=== PATIENT | male | born 1950 ===

== ENCOUNTER 2017-01-04 12:00 | Day surgery (SDC) | payer MEDICARE ==
[2016-12-31 12:21] VITALS: BMI 27.4
[2017-01-04] MEDS ORDERED: cefTRIAXone IV 1 gm in Dextros 50 ML IVPB ONE (15:32)
[2017-01-04] MEDS ORDERED: Lidocaine 2% Jelly (Uro-Jet) ONE (15:33)
[2017-01-04] MEDS ORDERED: Iohexol 240 (50 ml) ONE (15:33)
[2017-01-04] MEDS ORDERED: Lactated Ringer's 1,000 ML IV ONE (15:37)
[2017-01-04] MEDS ORDERED: Propofol 10 mg/ml Inj (20 ML) ONE (15:38)
[2017-01-04] MEDS ORDERED: Iohexol 240 200 ML IJ ONE (15:45)
[2017-01-04] MEDS ORDERED: HYDROmorphone 0.5 mg/0.5 ml ISec IVP PRN (16:15)
[2017-01-04] MEDS ORDERED: Oxycodone/Acetaminophen 5/325 mg Tab PO PRN (16:22)
[2017-01-04 17:00] VITALS: O2SAT 97
[2017-01-04 17:09] VITALS: RESP 18
[2017-01-04 17:35] VITALS: BP 146/79; PULSE 62; TEMP 97.8
--- NOTE | 2017-01-05 03:01 | HP ---
REASON FOR ADMISSION: Gross hematuria. HISTORY OF PRESENT ILLNESS: The patient is a very pleasant 66-year-old gentleman. We previously did a UroLift to the patient. He was voiding much better with a good flow. Then, it seems like he developed an episode of gross hematuria with possible retention. He was seen at another institution where I do not work. It is not so clear. He may have had a Stern catheter inserted at that time. He then came to the office. We discussed options. We actually did a cystoscope. He is here today for a cystoscopy, further evaluation. The possibility for a stricture exists, see below and the other possibility for a tumor ruling out any lesions. In the interim, the patient reports that since the time of the initial procedure, he initially had some difficulty, but then he was voiding so much better, he was very happy, the flow got better, and he was in good spirits. In fact to the point that he even brought his brother in to see me, his own brother, Viral Hassan, but then, he developed just a sudden episode of acute urinary retention with gross hematuria and he is here now for further diagnostic studies and evaluation. PAST MEDICAL HISTORY: No changes. PAST SURGICAL HISTORY: No changes. SOCIAL HISTORY: Unremarkable. PHYSICAL EXAMINATION: GENERAL: In no apparent distress. VITAL SIGNS: In the chart. ABDOMEN: Overall soft, nontender. : Normal male phallus without discharge. No testicular masses. RECTAL: *------* a 30 g prostate. LABORATORY DATA: Also see the labs that are included in the chart. PSA noted. BUN and creatinine noted. DIAGNOSES: Urinary retention, voiding dysfunction, gross hematuria. From urology standpoint, the diagnoses are gross hematuria, voiding dysfunction, decreased flow stream. PLAN: As follows. We are going to plan for a cystoscopy, a possible IOU and a cystogram and then further plan for followup depending on what we find clinically. The patient will receive antibiotic prophylaxis and we will proceed ahead and risks and benefits were discussed with the patient in my office and here in [place] both times. Diego Acuna MD [facility] # [id number]
--- NOTE | 2017-01-05 11:31 | OP ---
PREOPERATIVE DIAGNOSES: Gross hematuria, voiding dysfunction, possible bladder neck contracture and elevation of PSA. POSTOPERATIVE DIAGNOSES: Gross hematuria, voiding dysfunction, possible bladder neck contracture and elevation of PSA. PROCEDURE: Cystoscopy and cystogram. SURGEON: Diego Acuna MD BLOOD LOSS: Less than 10 mL. COMPLICATIONS: There were no complications. FINDINGS: The anterior urethra was normal. There is no pinpoint stricture. There is some narrowing just distal to the veru. The verumontanum is visually relatively occlusive. It is not an open like TURP, but you can see there are some defects, but it is mostly occlusive. Of significant note also is on the food equipment service technician film finding what looks like metal pieces, I believe the patient has no history of radiation, it almost looked like gigantic large radiation seeds and there are only about 8 to 10 of them. It could be the clips that were put in during the lift. But either way, I do not find them in the urinary bladder despite the x-rays, despite obliquing and despite careful search and I am aware of it, I could not see any direct clips. I did try to irrigate out the bladder and see if I can make them less in number. I have to check the count on the final film to see if they looked like it is less in number. But the other finding is there is no bladder neck contracture directly. In fact, that looks reasonably open. There was no bladder tumor identified. Ureteral orifices have clear efflux. INDICATIONS: See history and physical. This is a very pleasant gentleman. PROCEDURE: See the addendum at the end for further plan. The patient was brought to the operating room, placed on a table, routine monitors were placed. Time out was called to confirm the patient's positioning, etc. Time out was called and we put the patient in lithotomy and the patient had already received antibiotic prophylaxis. Cystoscope via the urethra, entry was normal and no real stricture. Just distal to veru, I took a picture, there is like a little narrowing, but it is not pinpoint and the scope goes right through, used a #22-scope. Told him again it is not widely open, but it is not the same occlusive nature of prostate. There are also different areas as you march along going proximal. At the bladder neck, it is fairly open. metal radiodense items that are across the floor of the bladder. Later oblique examination seemed to be again like here in the bladder and not in the rectum behind. See the plans listed below, but on the basis of CT scan. I did a cystogram to confirm the patient positioning. I do not see any source for direct gross hematuria, the prostate looked somewhat erythematous, and there is a moderate amount within the urinary bladder. The patient tolerated this procedure well without complications. On rectal exam, a 30 g prostate, soft and smooth. My plan and recommendations for the patient will be CT scan of the abdomen and pelvis just if we could find further where that metal is. I suspect it is within the prostate and not within the bladder. It was difficult on the first food equipment service technician film, it looked like it was more of bladder, but after doing the other films, moving the patient around, it is possible that is in the prostate. We will do a CT scan. Either way, I am not planning to remove anything. In terms of the patient's voiding habit, if he is okay, we are going to leave him. If he is not okay, we are going to plan for further treatment, but at this point, I would recommend and agree with laser TURP, but we will see how he responds. Diego Acuna MD
--- NOTE | 2017-01-05 12:53 | RAD ---
HISTORY: HEMATURIA/URINARY RETENTION COMPARISON: GoNo prior. FINDINGS: BOWEL: Single AP radiograph of the abdomen labeled "Machine Tender " is submitted. Normal abdominal bowel gas pattern. No hepatic or splenic enlargement. No masses or abnormal intra-abdominal calcifications. Radiation seed implants are seen in the prostate bed. BONES: Normal. OTHER FINDINGS: None. IMPRESSION: Unremarkable examination.
--- NOTE | 2017-01-05 12:55 | RAD ---
PROCEDURE: Intraoperative fluoroscopy HISTORY: HEMATURIA/RETENTION COMPARISON: Not available TECHNIQUE: Intraoperative fluoroscopy was provided for a cystogram. Total time of fluoroscopy was 4.2 seconds. FINDINGS: 3 fluoroscopic spot films are submitted. The films are on file for review. Please see procedure report from Dr. King Acuna. IMPRESSION: Fluoroscopy provided.
== END 2017-01-04 17:30 | disposition home or self-care (01) ==
LOC: C.SDS 12:00
PROVIDERS: ATTEND Urology
DX: R31.0 Gross hematuria (principal); R33.9 Retention of urine, unspecified
CPT/HCPCS: 52000; 74000; 76000; J0696; J7120

== ENCOUNTER 2017-02-21 09:10 | Inpatient (IN) | payer MEDICARE ==
[2017-02-21 09:10] VITALS: BMI 27.4
[2017-02-21 09:52] LABS: RBC URINE 6 /hpf (0-3); URINE BACTERIA RARE (<OCC); URINE BILIRUBIN NEGATIVE (NEGATIVE); URINE BLOOD NEGATIVE (NEGATIVE); URINE COLOR Straw (YELLOW); URINE GLUCOSE (UA) NORMAL (Normal); URINE KETONE NEGATIVE (NEGATIVE); URINE LEUKOCYTE ESTERASE NEG Leu/uL (Negative); URINE PROTEIN NEGATIVE (NEGATIVE); URINE UROBILINOGEN NORMAL mg/dL (0.2-1.0); WBC URINE 4 /hpf (0-5)
--- NOTE | 2017-02-21 10:01 | C.PDOC ---
History Of Present Illness 66 y/o male, with PMHx of BPH, presents to Emergency Department for evaluation of urinary retention since early this morning. Notes that he last urinated 4 hours ago, but states "just a little". Of note, patient had cystoscopy by Dr. Agustín Acuna last month. Otherwise, denies any fever, hematuria, back pain, abdominal pain, or any other associated symptoms at this time. Time Seen by Provider: 02/21/17 09:23 Chief Complaint (Nursing): Male Genitourinary History Per: Patient History/Exam Limitations: no limitations Onset/Duration Of Symptoms: Days Current Symptoms Are (Timing): Still Present Quality Of Discomfort: "Pain" Associated Symptoms: Urinary Symptoms (urinary retention). denies: Fever, Chills, Nausea, Vomiting, Diarrhea, Loss Of Appetite, Back Pain, Chest Pain, Constipation Alleviating Factors: None Recent travel outside of the [place]: No Additional History Per: Patient Past Medical History Reviewed: Historical Data, Nursing Documentation, Vital Signs Vital Signs: Last Vital Signs Temp 98.1 F 02/21/17 09:29 Pulse 94 H 02/21/17 09:29 Resp 18 02/21/17 09:29 BP 132/88 02/21/17 09:29 Pulse Ox 98 02/21/17 10:35 - Medical History PMH: Benign Prostatic Hyperplasia Denies: Chronic Kidney Disease Family History: States: Unknown Family Hx - Social History Hx Alcohol Use: No Hx Substance Use: No Review Of Systems Except As Marked, All Systems Reviewed And Found Negative. Constitutional: Negative for: Fever, Chills Gastrointestinal: Negative for: Nausea, Vomiting, Abdominal Pain Genitourinary: Positive for: Other (urinary retention). Negative for: Dysuria, Frequency, Hematuria, Penile Discharge Musculoskeletal: Negative for: Back Pain Physical Exam - Physical Exam Appears: Non-toxic, Other (uncomfortable) Skin: Normal Color, Warm, Dry, No Rash Head: Atraumatic, Normacephalic Eye(s): bilateral: Normal Inspection, EOMI Nose: Normal Oral Mucosa: Moist Neck: Normal ROM, Supple Chest: Symmetrical Cardiovascular: Rhythm Regular, No Murmur Respiratory: Normal Breath Sounds, No Rales, No Rhonchi, No Wheezing Gastrointestinal/Abdominal: Soft, Tenderness (suprapubic), No Guarding, No Rebound Back: No CVA Tenderness Extremity: Normal ROM Neurological/Psych: Oriented x3, Normal Speech ED Course And Treatment - Laboratory Results Result Diagrams: 02/21/17 10:28 02/21/17 10:28 O2 Sat by Pulse Oximetry: 98 (on RA) Pulse Ox Interpretation: Normal Progress Note: Blood work, UA ordered and reviewed. Pt was given IV fluids. Stern catheter was inserted. On reassessment, patient reports feeling much better. Case discussed with Dr. Agustín Acuna who requested admission for further evaluation. Disposition - Disposition Disposition Time: 10:00 Condition: STABLE - Clinical Impression Clinical Impression: Urinary retention due to benign prostatic hyperplasia - PA / HOT OILER / Resident Statement MD/DO has reviewed & agrees with the documentation as recorded. - Scribe Statement The provider has reviewed the documentation as recorded by the Scribe Alma Mak All medical record entries made by the Scribe were at my direction and personally dictated by me. I have reviewed the chart and agree that the record accurately reflects my personal performance of the history, physical exam, medical decision making, and the department course for this patient. I have also personally directed, reviewed, and agree with the discharge instructions and disposition.
[2017-02-21] MEDS ORDERED: Sodium Chloride 0.9% 1,000 ML ONE (10:11)
[2017-02-21] MEDS: Sodium Chloride 0.9% 1,000 ML IV SCH (10:30)
[2017-02-21 10:34] LABS: BASO % 0.2 % (0.0-2.0); EOS % 0.1 % (0.0-4.0); HEMATOCRIT 44.3 % (35.0-51.0); LYMPH # 0.6 K/uL (1.0-4.3); LYMPH % 8.2 % (20.0-40.0); MEAN CELL VOLUME 85.6 fL (80.0-94.0); MEAN CORPUSCULAR HEMOGLOBIN 28.5 pg (27.0-31.0); MEAN CORPUSCULAR HGB CONC 33.3 g/dL (33.0-37.0); MONO # 0.5 K/uL (0.0-0.8); NRBC % 0.1 % (0.0-2.0); PLATELET COUNT 162 K/uL (130-400); RED CELL DISTRIBUTION WIDTH 13.4 % (11.5-14.5); WHITE BLOOD COUNT 7.6 K/uL (4.8-10.8)
[2017-02-21 10:55] LABS: CHLORIDE 108 mmol/L (98-107); POTASSIUM 4.2 mmol/L (3.6-5.2); SODIUM 140 mmol/L (132-148)
[2017-02-21 10:58] LABS: ALB/GLOB RATIO 1.1 (1.0-2.1); ALKALINE PHOSPHATASE 50 U/L (38-126); ALT/SGPT 31 U/L (21-72); AST/SGOT 24 U/L (17-59); BILIRUBIN,TOTAL 0.5 mg/dL (0.2-1.3); BLOOD UREA NITROGEN 16 mg/dL (9-20); CALCIUM 8.4 mg/dl (8.6-10.4); CARBON DIOXIDE 22 mmol/L (22-30); GFR AFRICAN-AMERICAN > 60; GLUCOSE,RANDOM 101 mg/dL (75-110)
[2017-02-21 11:02] LABS: NEUTROPHIL 83 % (50-75); REACTIVE LYMPHOCYTES 1 % (0-0); TOTAL CELLS COUNTED 100
[2017-02-21] MEDS ORDERED: Ciprofloxacin 400mg/200ml D5W 0 MG/0 ML BAG IVPB ONE (14:17)
[2017-02-21] MEDS ORDERED: Lidocaine 2% Jelly (Uro-Jet) ONE (14:17)
[2017-02-21] MEDS ORDERED: cefTRIAXone IV 1 gm in Dextros 50 ML IVPB ONE (14:17)
[2017-02-21] MEDS ORDERED: Midazolam 2 MG/2 ML VIAL ONE (14:42)
[2017-02-21] MEDS ORDERED: Lactated Ringer's 1,000 ML IV ONE ×2 (15:00→15:42)
[2017-02-21] MEDS ORDERED: ePHEDrine 50 mg/ml Inj ONE (15:15)
[2017-02-21] MEDS ORDERED: HYDROmorphone 0.5 mg/0.5 ml ISec IVP PRN (15:47)
[2017-02-21] MEDS: Gentamicin 80 mg in 0.9% NS 80 MG/100 ML BAG IVPB SCH (17:15)
--- NOTE | 2017-02-21 21:16 | HP ---
EMERGENCY ADMISSION HISTORY AND PHYSICAL Emergency for urinary retention. See the plans listed below. HISTORY OF PRESENT ILLNESS: The patient is a very pleasant gentleman . He has lot of voiding dysfunction, recurrent episodes of urinary retention. Today, he came in with a distended bladder with urinary retention, which made him come into the emergency and actually bringing him up to the operating for a TURP. We have discussed options before and at this point the patient is extremely pleasant about the whole matter, planning was for having surgery, was waiting for various doctors, but at this point he cannot hold on. We have tried previous noninvasive, less invasive techniques, but we are going to plan for TURP now. PAST MEDICAL AND SURGICAL HISTORY: Listed on the chart. No history of an MD and CVA. SOCIAL HISTORY: Unremarkable. He actually brought his brother to see me as well. MEDICATIONS: Except for Flomax. He is not on aspirin or any kind of blood thinner. ALLERGIES: NO ALLERGIES. REVIEW OF SYSTEMS: No weight loss, chest pain, or shortness of breath. PHYSICAL EXAMINATION: GENERAL: A well-developed male, in no apparent distress. VITAL SIGNS: Within normal limits. LUNGS: Clear. HEART: Normal S1 and S2. ABDOMEN: Soft and nontender. PELVIS: No pelvic mass appreciated. GENITOURINARY: Normal phallus without discharge. No testicular masses. RECTAL: Large prostate 30 g, soft and smooth. LABORATORY DATA: I have previously done cystoscopic evaluation for long occlusive prostate. DIAGNOSES: Urinary retention, voiding dysfunction, and hematuria. PLAN: We discussed options with the patient. At this point, he has got multiple voiding trails. I discussed options leaving a Stern, giving more voiding trials, I discussed open prostatectomy as well as cysto and TURP. I discussed ejaculatory dysfunction. We discussed all the risks specifically my recommendation and I discussed with the patient the idea intermittent catheterization. He is concerned a little bit, but understands completely the risk of retrograde ejaculation or anejaculation. Also discussed with the patient the possibility that the operation may not work for various reasons. After discussing all the options, risks, benefits, treatment alternatives, the plan is, we are going to bring the patient to the OR, antibiotics prophylaxis. We are going to do a standard electrocautery TURP. Further plans were discussed. The options for waiting for a GreenLight laser. We discussed other option, which was prostate biopsies. We discussed noninvasive treatments. Further we discussed intermittent catheterization. After discussing all those options, the plan as follows: 1. Antibiotics. 2. TURP with electrocautery and then further plans will follow. Diego Acuna MD
[2017-02-21 21:54] VITALS: RESP 20
[2017-02-21] MEDS: Oxycodone/Acetaminophen 5/325 mg Tab PO PRN (23:21)
[2017-02-22] MEDS: Sodium Chloride 0.9% 1,000 ML IV SCH ×2 (06:45→17:51)
--- NOTE | 2017-02-22 11:21 | OP ---
PROCEDURE DATE: 02/21/2017 PREOPERATIVE DIAGNOSES: Urinary retention, voiding dysfunction, hematuria. POSTOPERATIVE DIAGNOSES: Urinary retention, voiding dysfunction, hematuria. PROCEDURE: TURP. SURGEON: Diego Acuna MD ESTIMATED BLOOD LOSS: About 30 mL. COMPLICATIONS: There were no complications. SPECIMEN: Prostate chips. DRAIN: Stern catheter with about 50 mL with moderate amount of traction. INDICATIONS: See the history and physical for the details. Very pleasant gentleman with recurrent episodes of retention, comes in now with retention. We discussed the options, he wants something done right away. We brought him to the OR. We had him after scheduling n.p.o. and we are bringing him for the above procedure. FINDINGS: Normal anterior urethra, no strictures on reviewing and it was minimally visually occlusive prostate interesting for a patient who has had previous noninvasive treatments and is fairly occlusive. Within the bladder neck, there was visually occlusive prostate, ureteral orifice identified, pictures were taken. There were no complications. At the termination of the procedure, the patient is fairly open, but there is more prostatic tissue, but again see the operative report itself. There is some bleeding noted. I was concerned about absorption of bleeding. DESCRIPTION OF PROCEDURE: After obtaining informed consent, the patient was placed on the table. Routine monitors were placed. Time-out was called. We confirmed the patient positioning, etc. I do want to mention that we tried to arrange for GreenLight laser TURP, but for various reasons, the patient now presented as an emergency. After discussing the options with the patient, I brought to the OR for immediate treatment, and therefore, we did this with standard electrocautery. The cystoscope was inserted via urethra. The patient was given anesthesia. We had used the spinal anesthesia. Time-out was called, we confirmed the patient, etc. The patient was given spinal anesthesia. Antibiotics were given. We used Rocephin 1 dose. We introduced the resectoscope with the visual obturator and identified our landmarks, on reviewing and is visually occlusive about 3 cm in length at least, maybe even 4 cm. It was long, but we thought we were able to do, so I discussed with the patient an open suprapubic prostatectomy. We discussed further diagnostic studies. At this point, the patient would began to feel pressure to get this taken care of. Therefore, we decided that as best as we can we will at least create a channel to make the patient to be able to void efficiently. The veru was identified, the ureteral orifice identified. What is of note is that there is bleeding from the prostate and the bladder neck without even we introducing the resectoscope, just by itself. After identifying the nodes, we began along the floor between 5 and 7 and opened this nicely slowly, gently, carefully to make a really nice open bladder neck. Now, we turned our attention from 7 to 11, still near the bladder neck, we working out back more distally and then from 5 to 1, again in a similar fashion. Now, we reevaluated, we see the verumontanum and we keep working gently, carefully. There was some bleeding noted. It was actually very, very juicy prostate. We tried controlling the bleeding as best with the cautery and as well we had it cutting up 180, the cautery up at 60. In best of we could, we tried controlling, we keep seeing all landmarks and we keep our orientation along the floor and then turning out 7 to 11 and then 5 to 1 and keep working our way back. At the veru, we identified, the veru to keep it intact. We resected laterally. At this point looking in from the veru on in, it was fairly reasonably open, but there was some bleeding noted. We tried to cauterize gently carefully. At this point, we turned our attention back to the bladder neck. We went anteriorly along the roof between 11 and 1 to resect this as gently as we could and try to create just a little extra opening. At this point from the veru in, it was somewhat opened, there was still prostatic tissue, but we were able to resect a good amount. At this point, we irrigated out all the chips. We then put a Stern catheter, put it to straight drainage. The patient tolerated the procedure well without complications. He was brought to recovery room in stable condition. We did put a mild traction with a little Mastisol. Overall, the patient tolerated the procedure well without complication. Diego Acuna MD
--- NOTE | 2017-02-22 14:47 | CARD ---
APPROVED REPORT EKG Measurement Heart [id number] IN [id number] <Conclusion> Normal sinus rhythm Possible Left atrial enlargement Borderline ECG
--- NOTE | 2017-02-22 15:21 | PCM.URO ---
Urology Progress Note - Objective Lab Results Last 24 Hours: Laboratory Results - last 24 hr 02/22/17 11:10 POC Glucose (mg/dL) 72 Intake & Output: Intake & Output 02/21/17 02/22/17 02/22/17 18:59 06:59 18:59 Intake Total 1630 5000 Output Total 1150 5600 Balance 480 -600 Weight 150 lb Intake: Intake, IV Amount 1000 Right Forearm 1000 Oral 630 Other 5000 Output: Urine 1150 5600 3-way Urethral 700 Other: Voiding Method 3-way Stern with CBI # Bowel Movements 1 Vital Signs: Vital Signs - 24 hr 02/21/17 02/21/17 02/21/17 15:42 16:00 16:15 Temperature 97.9 F Pulse Rate 58 L 61 52 L Respiratory 15 16 16 Rate Blood Pressure 98/64 L 105/63 119/68 O2 Sat by Pulse 97 97 100 Oximetry 02/21/17 02/21/17 02/21/17 16:30 17:00 17:30 Temperature Pulse Rate 61 55 L 52 L Respiratory 21 15 16 Rate Blood Pressure 138/81 133/78 132/75 O2 Sat by Pulse 100 100 100 Oximetry 02/21/17 02/21/17 02/21/17 18:00 18:30 19:00 Temperature 98 F Pulse Rate 59 L 64 62 Respiratory 18 15 17 Rate Blood Pressure 144/85 131/79 129/71 O2 Sat by Pulse 100 97 92 L Oximetry 02/21/17 02/21/17 02/21/17 20:00 21:00 23:15 Temperature 98.1 F 97.8 F 98.3 F Pulse Rate 58 L 66 84 Respiratory 18 20 20 Rate Blood Pressure 127/77 144/89 134/78 O2 Sat by Pulse 98 98 98 Oximetry 02/22/17 02/22/17 04:15 07:00 Temperature 98.5 F 98.2 F Pulse Rate 56 L 58 L Respiratory 20 20 Rate Blood Pressure 123/82 111/67 O2 Sat by Pulse 98 98 Oximetry
[2017-02-22] MEDS: Gentamicin 80 mg in 0.9% NS 80 MG/100 ML BAG IVPB SCH (17:49)
[2017-02-23] MEDS ORDERED: Pneumococcal 23-Valent Vaccine IM ONE (10:00)
[2017-02-23] MEDS: Oxycodone/Acetaminophen 5/325 mg Tab PO PRN (10:22)
--- NOTE | 2017-02-23 11:32 | PCM.URO ---
Urology Progress Note - General General: No Complaints, Tolerating Diet - Subjective Abdominal Pain: No Flank Pain: No Nausea: No Vomiting: No Hematuria: No Dsypnea: No Chest Pain: No Fever & Chills: No - Objective Lab Results Last 24 Hours: Laboratory Results - last 24 hr 02/22/17 02/22/17 02/22/17 11:10 16:15 21:20 POC Glucose (mg/dL) 72 106 104 Intake & Output: Intake & Output 02/22/17 02/23/17 02/23/17 18:59 06:59 18:59 Intake Total 6200 80839 Output Total 6000 54001 Balance 200 -1850 Intake: Intake, IV Amount 800 800 Right Forearm 800 800 Oral 400 Other 5000 54203 Output: Urine 6000 00392 3-way Urethral 400 1100 Vital Signs: Vital Signs - 24 hr 02/22/17 02/22/17 02/23/17 15:00 23:10 04:00 Temperature 97.6 F 98.5 F 98.3 F Pulse Rate 70 62 58 L Respiratory 20 20 20 Rate Blood Pressure 135/80 147/68 121/75 O2 Sat by Pulse 97 97 97 Oximetry 02/23/17 07:54 Temperature 98.2 F Pulse Rate 56 L Respiratory 20 Rate Blood Pressure 123/78 O2 Sat by Pulse 96 Oximetry - Physical Exam Abdominal Exam: Soft, Non-Tender, Non-Distended Back: No CVA Tenderness Genitalia: Without Inflammation Urinary Catheter Draining Well: Yes Urine Color: Clear, Yellow Extremities: Normal: Bilateral - Male Phallus: Uncircumcised (paraphimosis reduced) Testes: Normal: Bilateral - Plan Discontinue Urinary Catheter: Yes Additional Information: Imp: progressing well. P: discontinue munoz catheter. monitor output. hydration. discussed w pt and nursing staff
[2017-02-23 16:54] VITALS: BP 126/73; PULSE 74; TEMP 98.7; O2SAT 97
[2017-02-23] MEDS: Gentamicin 80 mg in 0.9% NS 80 MG/100 ML BAG IVPB SCH (17:40)
[2017-02-23] MEDS: Sodium Chloride 0.9% 1,000 ML IV SCH (17:41)
== END 2017-02-23 22:30 | disposition home or self-care (01) | DRG 714 ==
LOC: C.6T 09:10 → C.ER 09:10 → C.SDS 10:09 → C.9E 16:30 → C.9S 16:57 → C.6T 20:57
PROVIDERS: ADMIT Urology; ATTEND Urology
PROC: 0VT08ZZ Resection of Prostate, Via Natural or Artificial Opening Endoscopic (ICD-10-PCS; principal; 2017-02-21 15:03)
DX: N40.1 Benign prostatic hyperplasia with lower urinary tract symptoms (principal); R33.8 Other retention of urine; R31.9 Hematuria, unspecified; N47.2 Paraphimosis

== ENCOUNTER 2017-09-23 06:06 | Day surgery (SDC) | payer OTHER ==
[2017-09-23] MEDS ORDERED: Midazolam 2 MG/2 ML VIAL ONE (07:53)
[2017-09-23] MEDS ORDERED: Propofol 10 mg/ml Inj (20 ML) ONE (07:53)
[2017-09-23] MEDS ORDERED: cefTRIAXone IV 1 gm in Dextros 50 ML IVPB ONE (08:16)
[2017-09-23] MEDS ORDERED: Oxycodone/Acetaminophen 5/325 mg Tab PO PRN (08:45)
[2017-09-23] MEDS ORDERED: HYDROmorphone 0.5 mg/0.5 ml ISec IVP PRN (09:07)
[2017-09-23] MEDS ORDERED: Lactated Ringer's 1,000 ML IV SCH (09:15)
[2017-09-23] MEDS ORDERED: Lactated Ringer's 500 ML IV ONE ×2 (09:44)
[2017-09-23 11:40] VITALS: BP 117/79; PULSE 54; RESP 18; TEMP 97.7; O2SAT 98
--- NOTE | 2017-10-14 12:37 | HP ---
REASON FOR ADMISSION: Elevated PSA, voiding dysfunction. This is a very pleasant gentleman who we know quite well. He has voiding dysfunction, history of urinary retention, now he has an elevated PSA and he is here today for an ultrasound of prostate and prostate biopsy. PAST MEDICAL/PAST SURGICAL HISTORY: As listed on the chart. No history of NH or CVA. MEDICATIONS: See chart. ALLERGIES: NONE. REVIEW OF SYSTEMS: As listed above, noncontributory. No weight loss, chest pain, shortness of breath. No constitutional complaints. PHYSICAL EXAMINATION: GENERAL: Well-nourished, well-developed male in no apparent distress. VITAL SIGNS: Within normal limits. NECK: No cervical or axillary lymphadenopathy. LUNGS: Clear. HEART: S1, S2. GENITOURINARY: Normal phallus. There is no testicular mass. RECTAL: A 20 to 30 gm prostate, soft and smooth. DIAGNOSES: Voiding dysfunction, elevated PSA, irritative and obstructive urinary complaints and benign prostatic hypertrophic symptoms. He has an elevated PSA. At this point, the plan is as follows: We are going to provide the patient antibiotic prophylaxis. We will do an ultrasound of the prostate and ultrasound-guided prostate biopsy. Risks and benefits discussed with the patient at length. Risk of infection and risk of retention all discussed at length. Further plans to follow. Diego Acuna MD
--- NOTE | 2017-10-17 08:34 | OP ---
PROCEDURE DATE: 09/23/2017 PREOPERATIVE DIAGNOSES: Elevated prostate-specific antigen, voiding dysfunction, nocturia, irritative and obstructive urinary complaints. POSTOPERATIVE DIAGNOSES: Elevated prostate-specific antigen, voiding dysfunction, nocturia, irritative and obstructive urinary complaints. PROCEDURES: Ultrasound of the prostate, ultrasound-guided prostate biopsy. SURGEON: Diego Acuna MD COMPLICATIONS: There were no complications. INDICATIONS: See the history and physical for further details. This is a very pleasant gentleman who is here for the above procedure, elevated PSA, voiding dysfunction. DESCRIPTION OF PROCEDURE: After obtaining informed consent, the patient was brought to the OR, placed on the table. Routine monitors were placed. Antibiotic prophylaxis used. I introduced the transrectal ultrasound probe, took pictures in transverse and longitudinal. Prostate volume measured to be about 40 mL. We now began our random biopsies. We did a total of 12 cores of prostate biopsies. Left base, left mid, left apex, right base, right mid, right apex, two at each part. Total of 12 cores. Postop biopsy rectal exam within normal limits. The patient tolerated the procedure well without complications. Diego Acuna MD
== END 2017-09-23 13:17 | disposition home or self-care (01) ==
LOC: C.SDS 06:06
PROVIDERS: ATTEND Urology
DX: R97.20 Elevated prostate specific antigen [PSA] (principal)
CPT/HCPCS: 55700; 88305; 88342; J0696; J7120